=== PATIENT | male | born 1960 | race Caucasian/White ===

== ENCOUNTER 2018-12-27 16:46 | Observation (INO) ==
[2018-12-27 17:28] LABS: Basophils % 0.2 % (0.1-2.0); Eosinophils % 0.2 % (0.1-12.0); Hemoglobin 14.8 g/dL (14.1-18.0); Lymphocytes # 2.1 K/mm3 (0.7-4.5); Lymphocytes % 14.6 % (10-50); Mean Corpuscular HGB Conc 32.3 g/dL (31.8-35.4); Mean Corpuscular Hemoglobin 30.2 pg (27.0-31.2); Mean Corpuscular Volume 93.6 fl (80-94); Mean Platelet Volume 7.1 fl (7.4-10.4); Monocytes # 0.8 K/mm3 (0.1-1.0); Monocytes % 5.4 % (1.7-9.3); Neutrophils # 11.5 K/mm3 (1.8-7.8); Neutrophils % 79.6 % (37.0-80.0); Platelet Count 402 K/mm3 (142-424); Red Blood Count 4.91 M/mm3 (4.60-6.20); Red Cell Distribution Width 13.2 % (11.5-17.5); White Blood Count 14.5 K/mm3 (4.8-10.8)
[2018-12-27 17:40] LABS: Alanine Aminotransferase 17 U/L (12-78); Albumin Level 2.7 gm/dL (3.4-5.0); Albumin/Globulin Ratio 0.4 (1.1-1.8); Alkaline Phosphatase 79 U/L (46-116); Anion Gap 8.2 mEq/L (5-15); Aspartate Amino Transferase 11 U/L (15-37); Bilirubin,Total 0.4 mg/dL (0.2-1.0); Blood Urea Nitrogen 12 mg/dL (7-18); Calcium 9.7 mg/dL (8.5-10.1); Carbon Dioxide 35 mmol/L (21.0-32.0); Chloride 100 mmol/L (98-107); Globulin 6.5 gm/dl (1.3-3.2); Potassium 4.2 mmoL/L (3.5-5.1); Sodium 139 mmol/L (136-145); Total Protein,Serum 9.2 gm/dL (6.4-8.2)
[2018-12-27 18:01] LABS: Glucose 108 mg/dL (74-106)
--- NOTE | 2018-12-27 18:15 | Emergency Department Note ---
ED Disposition Clinical Impression: COPD (chronic obstructive pulmonary disease) Disposition: Admitted as Observation Condition on Discharge: Fair Referrals: Provider,Referral, [Primary Care Provider] - Time of Disposition: 19:28 - Critical Care Critical Care Time: No Attestation: On 12/27/18, the high probability of a clinically significant, sudden or life threatening deterioration of the following system(s) required my full and direct attention, intervention and personal management. The time I documented below is in addition to time spent performing reported procedures but includes the following listed in this critical care notation. Medical Decision Making - Medical Records Medical records reviewed: Yes: I reviewed the patient's medical records. - Jin Inquiry Pt receiving controlled substance: No Jin was queried for this patient: No Vital Signs: 12/27/18 17:14 12/27/18 18:17 12/27/18 18:30 Temperature 97.6 F Temperature Source Oral Pulse Rate [Left Radial] 92 H 61 79 Respiratory Rate 22 22 Blood Pressure [Right Arm] 146/76 H 148/91 H 153/82 H Blood Pressure Mean [Right Arm] 99 110 105 Blood Pressure Source [Right Arm] Automatic Cuff Automatic Cuff Blood Pressure Position [Right Arm] Sitting Sitting 02 Sat by Pulse Oximetry 83 L 96 88 L Oxygen Delivery Method Room Air Nasal Cannula Oxygen Flow Rate (LPM) 3 - Lab Data Lab results reviewed: Yes: I reviewed the patient's lab results. Lab Results 12/27/18 17:00: WBC 14.5 H, RBC 4.91, Hgb 14.8, Hct 46.0, MCV 93.6, MCH 30.2, MCHC 32.3, RDW 13.2, Plt Count 402, MPV 7.1 L, Neut % (Auto) 79.6, Lymph % (Auto) 14.6, Emery % (Auto) 5.4, Eos % (Auto) 0.2, Baso % (Auto) 0.2, Neut # (Auto) 11.5 H, Lymph # (Auto) 2.1, Emery # (Auto) 0.8, Eos # (Auto) 0.0, Baso # (Auto) 0.0 12/27/18 17:00: Sodium 139, Potassium 4.2, Chloride 100, Carbon Dioxide 35 H, Anion Gap 8.2, BUN 12, Creatinine 0.72, Estimated Creat Clear 105, Estimated GFR 111, Est GFR ( Amer) 135, Glucose 108 H, Calcium 9.7, Total Bilirubin 0.4, AST 11 L, ALT 17, Alkaline Phosphatase 79, Troponin I < 0.02, Total Protein 9.2 H, Albumin 2.7 L, Globulin 6.5 H, Albumin/Globulin Ratio 0.4 L 12/27/18 17:00: Lactate 0.8 Result diagrams: 12/27/18 17:00 12/27/18 17:00 Orders (Tests/Meds): ED MEDICATIONS Generic Name Dose Route Start Last Admin Trade Name Freq PRN Reason Stop Dose Admin Levofloxacin/Dextrose 750 mg in 150 mls @ 100 mls/hr 12/27/18 18:30 12/27/18 18:26 Levofloxacin 750mg/150ml Premix IV 01/10/19 18:29 100 mls/hr Q24H MATY Administration Protocol Discontinued Medications Generic Name Dose Route Start Last Admin Trade Name Freq PRN Reason Stop Dose Admin Albuterol/Ipratropium 3 ml 12/27/18 17:18 12/27/18 17:19 Duoneb 3ml Neb 12/27/18 17:19 3 ml ONCE ONE Administration Albuterol/Ipratropium 3 ml 12/27/18 19:06 Duoneb 3ml Neb IH 12/27/18 19:07 ONCE ONE Methylprednisolone Sodium Succinate 125 mg 12/27/18 17:18 12/27/18 17:19 Solu-Medrol 125mg/2ml Vial IV 12/27/18 17:19 125 mg ONCE ONE Administration ORDERS Category Date Time Status XR chest 2V Stat Exams 12/27/18 17:17 Taken Blood Culture Stat Micro 12/27/18 17:21 Received ABG [Arterial Blood Gas] Stat RT 12/27/18 17:21 Ordered - Physician Consults Physician Consulted: osman Time: 19:28 Reason -: Admission, Pt condition Comment/Response: iv levaquin, nebs, steroids, hope to arrange O2 General Adult HPI - General Chief complaint: Shortness of Breath/Dyspnea Stated complaint: SOA Time Seen by Provider: 12/27/18 18:15 Mode of Arrival: Ambulatory Source of Information: Patient, Spouse Limitations: No Limitations Description of Symptoms (Recalled from ER Triage Doc. by RN): Pt states for the last week he has had increased SOA with cough and green/clear sputum - Related Data Allergies Allergy/AdvReac Type Severity Reaction Status Date / Time NO KNOWN ALLERGIES - NKA Allergy Mild Uncoded 09/01/17 15:17 [facility] History - Hepatitis A Screen Drug use history?: No High risk sexual behaviors?: No History of sexually transmitted infection?: No Currently employed?: No Childcare worker?: No Do you have indoor plumbing?: Yes Do you have electricity?: Yes Attestation statement:: This patient has been screened for Hepatitis A risk factors. I have reviewed the patient's past medical history: Yes Medical History: Denies:: Diabetes Mellitus Type 1, Diabetes Mellitus Type 2 - Social History Smoking Status: Current every day smoker # Packs/Day (cigarettes): 3 Alcohol Intake: never Occupational Status: retired - Psychiatric History Expresses thoughts of harming self/others: None Suicide Plan Description: No Plan ROS Obtained: Yes All systems reviewed & no additional complaints - Constitutional Constitutional: Denies fever(s) - Eyes Eyes: Denies change in vision - ENT Ears, Nose, Mouth, and Throat: Denies sore throat, Denies throat swelling - Respiratory Respiratory: Yes chest congestion, Yes cough, Yes dyspnea, Yes dyspnea on exertion - Musculoskeletal Musculoskeletal: Denies joint swelling - Integumentary/Breasts Skin/Breast: Denies rash - Neurologic Neurologic: Denies headache(s), Denies numbness, Denies tingling/numbness/burning sensations, Denies syncope Physical Exam - General General appearance: alert, in no apparent distress - Head Head exam: atraumatic, normocephalic, normal inspection - Eye Eye exam: Present: normal appearance, PERRL, EOMI - ENT ENT exam: Present: normal exam, normal oropharynx, mucous membranes moist, TM's normal bilaterally, normal external ear exam - Respiratory Respiratory exam: Present: normal lung sounds bilaterally, wheezes. Absent: respiratory distress, accessory muscle use, prolonged expiratory phase - Cardiovascular Cardiovascular exam: Present: regular rate, normal rhythm. Absent: JVD - Extremities Exam Extremities exam: Present: normal inspection, full ROM, normal capillary refill. Absent: calf tenderness - Back Exam Back exam: Present: normal inspection. Absent: tenderness - Neurological Exam Neurological exam: Present: alert, oriented X3 - Psychiatric Psychiatric exam: Present: normal affect, normal mood - Skin Skin exam: Present: warm, dry, intact, normal color
[2018-12-28 06:36] LABS: Basophils % 0.1 % (0.1-2.0); Hematocrit 42.7 % (42.0-52.0); Hemoglobin 13.8 g/dL (14.1-18.0); Lymphocytes % 7.4 % (10-50); Mean Corpuscular HGB Conc 32.4 g/dL (31.8-35.4); Mean Corpuscular Hemoglobin 30.3 pg (27.0-31.2); Mean Corpuscular Volume 93.5 fl (80-94); Mean Platelet Volume 6.9 fl (7.4-10.4); Monocytes # 0.9 K/mm3 (0.1-1.0); Monocytes % 6.8 % (1.7-9.3); Neutrophils # 11.2 K/mm3 (1.8-7.8); Neutrophils % 85.6 % (37.0-80.0); Platelet Count 407 K/mm3 (142-424); Red Blood Count 4.56 M/mm3 (4.60-6.20); Red Cell Distribution Width 13.2 % (11.5-17.5)
[2018-12-28 06:46] LABS: Anion Gap 10.3 mEq/L (5-15); Calcium 9.2 mg/dL (8.5-10.1); Potassium 4.3 mmoL/L (3.5-5.1)
--- NOTE | 2018-12-28 07:20 | Pharmacy Consult Notes ---
[facility] Pharmacy VTE Monitoring - Patient Demographics Admission date: 12/28/18 Report Date: 12/28/18 Time: 07:19 Allergies/Adverse Reactions: Patient Allergies NO KNOWN ALLERGIES - NKA Allergy (Mild, Uncoded 09/01/17 15:17) Height: 1.73 m Weight: 74.899 kg Patient Problems: Current Active Problems COPD (chronic obstructive pulmonary disease) (Acute) - VTE Risk Labs: VTE Related Lab Results Hgb 13.8 g/dL (14.1-18.0) L 12/28/18 06:06 Hct 42.7 % (42.0-52.0) 12/28/18 06:06 Plt Count 407 K/mm3 (142-424) 12/28/18 06:06 BUN 13 mg/dL (7-18) 12/28/18 06:06 Creatinine 0.74 mg/dL (0.70-1.30) 12/28/18 06:06 Estimated Creat Clear 112 mL/min (50-200) 12/28/18 06:06 Was VTE Risk Assessment Performed: Yes VTE Score: 4 VTE Risk Level: Low Risk Clinical Trial Participant: No - Prophylaxis VTE Prophylaxis Ordered?: Yes Types of VTE Prophylaxis: TEDS Knee High
--- NOTE | 2018-12-28 07:42 | H&P/Discharge Summary ---
General - General Admission date:: 12/27/18 Discharge date: 12/28/18 *Admission Date: 12/28/18 *Chief complaint: dyspnea *History of present illness: 58yo M with no significant medical Hx due to no doctor visits in >10 yrs. Presents to the ER with >2 weeks of respiratory distress. Complains of increased sputum production, intermittent fevers, SOA, dyspnea with exertion. Came to ER at the request of his due to SOA. Found to be hypoxic and have PNA. Admitted for new O2 requirement. started on Abx and steroids. Sputum culture obtained. Some improvement with Nebs. [facility] History I have reviewed the patient's past medical history: Yes Medical History: Denies:: Cancer, Diabetes Mellitus Type 1, Diabetes Mellitus Type 2, MRSA *Have you ever received a pneumonia vaccine?: No *Have you received a flu vaccine this season?: No Other Surgeries: Yes: No Previous Surgery Amputation: No - *Social History Educational Level: Attended High School Smoking Status: Current every day smoker Tobacco Type: cigarettes # Packs/Day (cigarettes): 1 Alcohol Intake: never *Occupational Status:: retired Household Members: spouse *Travel in the last 8 weeks: None - Psychiatric History Expresses thoughts of harming self/others: None Suicide Plan Description: No Plan Family Hx:: No significant family history Review of Systems - Review of Systems Review of systems:: pertinent systems reviewed and negative unless documented below - *Neurologic Denies headache(s), Denies numbness, Denies tingling/numbness/burning sensations, Denies fainting Exam Vital signs and Labs for Last 24 Hours: Temp Pulse Resp BP Pulse Ox 98.5 F 84 18 141/72 H 93 L 12/28/18 04:00 12/28/18 05:54 12/28/18 04:00 12/28/18 04:00 12/28/18 05:54 Laboratory Results - last 24 hr 12/27/18 17:00: WBC 14.5 H, RBC 4.91, Hgb 14.8, Hct 46.0, MCV 93.6, MCH 30.2, MCHC 32.3, RDW 13.2, Plt Count 402, MPV 7.1 L, Neut % (Auto) 79.6, Lymph % (Auto) 14.6, Glenn % (Auto) 5.4, Eos % (Auto) 0.2, Baso % (Auto) 0.2, Neut # (Auto) 11.5 H, Lymph # (Auto) 2.1, Glenn # (Auto) 0.8, Eos # (Auto) 0.0, Baso # (Auto) 0.0 12/27/18 17:00: Sodium 139, Potassium 4.2, Chloride 100, Carbon Dioxide 35 H, Anion Gap 8.2, BUN 12, Creatinine 0.72, Estimated Creat Clear 105, Estimated GFR 111, Est GFR ( Amer) 135, Glucose 108 H, Calcium 9.7, Total Bilirubin 0.4, AST 11 L, ALT 17, Alkaline Phosphatase 79, Troponin I < 0.02, Total Protein 9.2 H, Albumin 2.7 L, Globulin 6.5 H, Albumin/Globulin Ratio 0.4 L 12/27/18 17:00: Lactate 0.8 12/28/18 06:06: WBC 13.0 H, RBC 4.56 L, Hgb 13.8 L, Hct 42.7, MCV 93.5, MCH 30.3, MCHC 32.4, RDW 13.2, Plt Count 407, MPV 6.9 L, Neut % (Auto) 85.6 H, Lymph % (Auto) 7.4 L, Glenn % (Auto) 6.8, Eos % (Auto) 0.0 L, Baso % (Auto) 0.1, Neut # (Auto) 11.2 H, Lymph # (Auto) 1.0, Glenn # (Auto) 0.9, Eos # (Auto) 0.0, Baso # (Auto) 0.0 12/28/18 06:06: Sodium 139, Potassium 4.3, Chloride 101, Carbon Dioxide 32, Anion Gap 10.3, BUN 13, Creatinine 0.74, Estimated Creat Clear 112, Estimated GFR 108, Est GFR ( Amer) 131, Glucose 133 H D, Calcium 9.2 I & O for Last 24 hours: Intake & Output 12/25/18 12/26/18 12/27/18 12/28/18 23:59 23:59 23:59 23:59 Weight 74.899 kg 74.899 kg - Constitutional mild distress, thin, chronically ill appearing Comments: sitting in tripod position - *Routine HEENT Exam Head: Present: normocephalic, atraumatic Eye: Present: EOMI ENT: Present: mucous membranes moist - *Routine Neck Exam Present: supple, full ROM. Absent: JVD - *Routine Respiratory Exam Present: accessory muscle use, decreased breath sounds, prolonged expiratory phase, crackles (at bilateral bases) - *Routine Cardiovascular Exam Present: RRR, Normal S1 - *Routine Abdominal Exam Present: soft - *Routine Extremities Exam Absent: cyanosis, clubbing, edema - *Routine Skin Exam Present: intact. Absent: cyanosis - *Routine Neurological Exam Present: alert, oriented X3 Hospital Course Hospital Course: Admitted to hospital for acute hypoxemic respiratory failure. Started on nebulizers, IV Abx, steroids, and supplemental )2. PAtietn did well overnight with some improvement in respiratory status. Continued to require supplemental o2, though not as dyspneic. Transitioned to PO abx and steroids. Set up with Home O2. afebrile. ambulating independently, tolerating PO intake. Medically stable for DC home. Plan to follow-up with our office within the week. Results Labs on day of discharge: Labs from last 24 hours 12/28/18 12/28/18 12/27/18 06:06 06:06 17:00 WBC 13.0 H RBC 4.56 L Hgb 13.8 L Hct 42.7 MCV 93.5 MCH 30.3 MCHC 32.4 RDW 13.2 Plt Count 407 MPV 6.9 L Neut % (Auto) 85.6 H Lymph % (Auto) 7.4 L Glenn % (Auto) 6.8 Eos % (Auto) 0.0 L Baso % (Auto) 0.1 Neut # (Auto) 11.2 H Lymph # (Auto) 1.0 Glenn # (Auto) 0.9 Eos # (Auto) 0.0 Baso # (Auto) 0.0 Sodium 139 Potassium 4.3 Chloride 101 Carbon Dioxide 32 Anion Gap 10.3 BUN 13 Creatinine 0.74 Estimated Creat Clear 112 Estimated GFR 108 Est GFR ( Amer) 131 Glucose 133 H D Lactate 0.8 Calcium 9.2 Total Bilirubin AST ALT Alkaline Phosphatase Troponin I Total Protein Albumin Globulin Albumin/Globulin Ratio 12/27/18 12/27/18 17:00 17:00 WBC 14.5 H RBC 4.91 Hgb 14.8 Hct 46.0 MCV 93.6 MCH 30.2 MCHC 32.3 RDW 13.2 Plt Count 402 MPV 7.1 L Neut % (Auto) 79.6 Lymph % (Auto) 14.6 Glenn % (Auto) 5.4 Eos % (Auto) 0.2 Baso % (Auto) 0.2 Neut # (Auto) 11.5 H Lymph # (Auto) 2.1 Glenn # (Auto) 0.8 Eos # (Auto) 0.0 Baso # (Auto) 0.0 Sodium 139 Potassium 4.2 Chloride 100 Carbon Dioxide 35 H Anion Gap 8.2 BUN 12 Creatinine 0.72 Estimated Creat Clear 105 Estimated GFR 111 Est GFR ( Amer) 135 Glucose 108 H Lactate Calcium 9.7 Total Bilirubin 0.4 AST 11 L ALT 17 Alkaline Phosphatase 79 Troponin I < 0.02 Total Protein 9.2 H Albumin 2.7 L Globulin 6.5 H Albumin/Globulin Ratio 0.4 L DS: Diagnosis - Discharge Diagnosis (1) Acute hypoxemic respiratory failure Status: Acute Problem details: new O2 requirement on admission. Set up with O2 at time of DC. will monitor for chronicity at follow-up (2) Tobacco use disorder Status: Chronic (3) COPD (chronic obstructive pulmonary disease) Status: Chronic Problem details: suspect COPD based on flattened diaphragm, air trapping, scarring on CXR, and long tobacco use Hx. Given Inhalers to use at home for symptomatic relief. Initiated on Nicotine patches. Discharge Medications - Medications for Discharge Home Medication List at Discharge: New predniSONE [Prednisone 10mg Tab Dose-Pack] 40 mg PO DAILY 4 Days #16 pack Albuterol Sulfate [Albuterol HFA Inhaler] 2 puffs IH Q4-6H PRN 30 Days #1 inh PRN Reason: Shortness Of Breath Or Wheezing Inhaler, Assist Devices [Aerochamber Mini] 1 each MC DAILY #1 spacer Nicotine [Nicotine Patch 21mg/24hrs] 21 mg TD DAILY 30 Days #30 patch levoFLOXacin [Levaquin 750mg tablet] 750 mg PO DAILY 8 Days #8 tab Fluticasone/Vilanterol [Breo Ellipta 200-25 Mcg INH] 1 inhalation IH DAILY 30 Days #1 device Disposition Disposition: Home, Self-Care
[2018-12-28 10:34] LABS: Lymphocytes % 11 % (10-50); Monocytes % 3 % (2-9); Neutrophils % 85 % (42-76); Total Cells Counted 100
[2018-12-28 10:35] LABS: RBC Morphology Normal
== END 2018-12-28 11:13 | disposition home health service (06) ==
LOC: ER 16:46 → 2ND 19:34 → INTOOBSV 20:19 → 2ND 20:21
PROVIDERS: ADMIT Internal Medicine Adolescent Medicine; ATTEND Internal Medicine Adolescent Medicine
CPT/HCPCS: 36415; 71020; 71046; 80048; 80053; 83605; 84484; 85007; 85025; 87040; 87070; 87205; 93005; 94640; 94761; 96365; 96366; 96374; 96375; 99285; G0378; J1956